=== PATIENT | female | born 1995 | race Caucasian/White ===

== ENCOUNTER 2017-08-14 12:52 | Emergency (ER) | payer BC, OTHER ==
[~2017-08-14 12:52] MED LIST: DIPH28.33 TP; PRED20TA PO; [UNRECOGNIZED DRUG - CODE] TP
[2017-08-14 13:00] VITALS: BP 122/81
[2017-08-14] MEDS ORDERED: PRED20TA PO (13:31)
--- NOTE | 2017-08-14 13:35 | PHYS DOC ---
General Chief Complaint: SKIN RASH/ABSCESS Stated Complaint: ABDOMINAL RASH Time Seen by MD: 13:11 Source: patient, old records Exam Limitations: no limitations Problems: History of Present Illness Initial Comments Patient is a 22-year-old female typically follows at [facility] who comes to the ED complaining of abdominal rash. Patient has extensive poison jose alberto and atopic dermatitis history in addition to Crohn's disease. States she does not follow with a batch blender her last colonoscopy was 3 years ago. She has family history of extensive environmental food and medication allergies. This morning she awoke with itchy red rash encompassing her abdomen and low back. She denies any new known exposures or contacts no new foods or medications. She's had these exacerbations in the past and states they always resolve with steroids and Benadryl. She denies any cough wheeze hoarseness of feeling of lump in throat throat or mouth swelling. Her emergency Department vital signs are stable. Timing/Duration: 4-6 hours Severity: mild Modifying Factors: improves with other Associated Symptoms: rash Allergies: Coded Allergies: amoxicillin (Verified Allergy, Intermediate, rash, 08/28/15) Past Medical History Medical History: other (Crohn's disease, atopic dermatitis) Surgical History: no surgical history Family History Significant Family History: no pertinent family hx Social History Smoker: non-smoker Alcohol: occasionally Drugs: none Review of Systems Constitutional: denies chills, denies fever EENTM: denies nose congestion, denies throat swelling, denies mouth swelling Respiratory: denies cough, denies shortness of breath, denies stridor, denies wheezing Cardiovascular: denies chest pain, denies palpitations, denies syncope Gastrointestinal: denies abdominal pain, denies nausea, denies vomiting Musculoskeletal: denies back pain, denies joint swelling, denies neck pain Skin: see HPI Psychiatric/Neurological: denies headache, denies numbness, denies paresthesia Hematologic/Lymphatic: denies blood clots, denies easy bleeding, denies easy bruising Immunological/Allergic: see HPI Physical Exam General Appearance: WD/WN, no apparent distress Eyes: bilateral eye normal inspection, bilateral eye PERRL, bilateral eye EOMI Ear, Nose, Throat: hearing grossly normal, normal ENT inspection (no mouth or throat swelling airway is patent), normal pharynx Neck: non-tender, supple Respiratory: normal breath sounds, no respiratory distress Gastrointestinal: non tender, soft Back: no CVA tenderness, no vertebral tenderness Extremities: non-tender, normal inspection Skin: warm/dry (urticarial rash and accompanying patient's abdomen and low back consistent with allergy/urticaria it is mildly warm there are no vesicles no scabbing) Orders, Labs, Meds I discussed treatment options including treatment and observation until symptoms resolve versus treatment prescriptions discharge and the patient follow -up if needed. She requests to be treated and discharged she agrees to be compliant with discharge instructions. Signs and symptoms to monitor and urgent indications to return to the department discussed, the patient's questions were answered to her satisfaction and she expressed agreement and understanding with the treatment plan. Solu-Medrol 125 mg IM ordered for here. Departure Time of Disposition: 13:33 Disposition: 01 HOME, SELF-CARE Diagnosis: urticarial rash Condition: GOOD Patient Instructions: Rash, [id number] Additional Instructions: Rest, no strenuous activity. [id number] Pepcid and Benadryl while taking prednisone. Work excuse through August 17, note given. Prescription: Prednisone Follow-up at [facility] this week for recheck and allergy/immunology or dermatology referrals. Return to ED with new or changing symptoms. ELIZABETH FISH DO Aug 14, 2017 13:35
[2017-08-14] MEDS ORDERED: methylPREDNISolone SOD SUCC PF 125 MG/2 ML VIAL. IM ONE (14:00)
== END 2017-08-14 13:51 | disposition home or self-care (01) ==
LOC: ER 12:52
DX: L50.9 Urticaria, unspecified (principal); K50.90 Crohn's disease, unspecified, without complications; Z88.1 Allergy status to other antibiotic agents
CPT/HCPCS: 99283

== ENCOUNTER 2018-10-23 19:08 | Emergency (ER) | payer OTHER ==
[~2018-10-23] VITALS: Ht 172.7 cm; Wt 67.5 kg
--- NOTE | 2018-10-23 19:13 | ED.ADGEN ---
Past History Past Medical History: UTI, Other Past Surgical History: No Surgical History, Other Smoking: Non-smoker Alcohol Use: None Drug Use: None Adult General Chief Complaint Chief Complaint ".. I am ... I have nausea.. all I had today was peanut butter... and [place] fries... " HPI HPI Patient is a 23 year old female who presents with nausea and hx of 15 wk gravid with lst . Pt. does have hx of Crohns which is treated with diet. Pt. follows at [facility] for primary. Pt. follows [facility] for . Pt. has had 2 Ultra Sounds and reportedly everything has been normal. Pt. Denies any travel or specific ill contracts. Pt. has been on supplement vitamins and iron. Pt. has hx of anemia. Pt . unable to keep hydrated today because of nausea. Review of Systems Review of Systems Constitutional: Denies fever or chills [] Eyes: Denies change in visual acuity, redness, or eye pain [] HENT: Denies nasal congestion or sore throat [] Respiratory: Denies cough or shortness of breath [] Cardiovascular: No additional information not addressed in HPI [] GI: Denies abdominal pain, , vomiting, bloody stools or diarrhea [] Complaints of nausea. : Denies dysuria or hematuria [] Musculoskeletal: Denies back pain or joint pain [] Integument: Denies rash or skin lesions [] Neurologic: Denies headache, focal weakness or sensory changes [] Endocrine: Denies polyuria or polydipsia [] All other systems were reviewed and found to be within normal limits, except as documented in this note. Family History Family History Non-contributory Current Medications Current Medications Current Medications Medications (Trade) Dose Ordered Sig/Clinton Start Time Stop Time Status Last Admin Dose Admin Famotidine (Pepcid Vial) 20 mg 1X ONCE 10/23/18 19:30 10/23/18 19:43 DC 10/23/18 19:55 20 MG Lactated Ringer's 1,000 ml @ 1,000 mls/hr Q1H 10/23/18 19:30 10/23/18 20:29 DC 10/23/18 19:54 1,000 MLS/HR Ondansetron HCl (Zofran) 8 mg 1X ONCE 10/23/18 19:30 10/23/18 19:43 DC 10/23/18 19:54 8 MG See Nursing for home meds Allergies Allergies Allergies Coded Allergies Type Severity Reaction Last Updated Verified amoxicillin Allergy Intermediate rash 08/28/15 Yes Physical Exam Physical Exam Constitutional: Well developed, well nourished,moderately acute distress, non- toxic appearance. [] HENT: Normocephalic, atraumatic, bilateral external ears normal, oropharynx dry , no oral exudates, nose normal. [] Eyes: PERRLA, EOMI, conjunctiva normal, no discharge. [] Neck: Normal range of motion, no tenderness, supple, no stridor. [] Cardiovascular:Heart rate regular rhythm, no murmur [] Lungs & Thorax: Bilateral breath sounds clear to auscultation [] Abdomen: Bowel sounds normal, soft, mild generalized tenderness, no masses, no pulsatile masses. [] FHR 150's. Skin: Warm, dry, no erythema, no rash. [] Back: No tenderness, no CVA tenderness. [] Extremities: No tenderness, no cyanosis, no clubbing, ROM intact, no edema. [] Neurologic: Alert and oriented X 3, normal motor function, normal sensory function, no focal deficits noted. []DTR+ 2 patella. Psychologic: Affect anxious, judgement normal, mood normal. [] Current Patient Data Vital Signs Vital Signs Date Time Temp Pulse Resp B/P (MAP) Pulse Ox O2 Delivery O2 Flow Rate FiO2 10/23/18 21:00 73 18 103/61 (75) 100 Room Air 10/23/18 19:08 98.2 Lab Results Laboratory Tests Test 10/23/18 19:22 10/23/18 19:40 Urine Collection Type Unknown Urine Color Yellow Urine Clarity Hazy Urine pH 7.0 Urine Specific [place] 1.015 Urine Protein Neg (NEG-TRACE) Urine Glucose (UA) Neg mg/dL (NEG) Urine Ketones (Stick) Neg mg/dL (NEG) Urine Blood Neg (NEG) Urine Nitrite Neg (NEG) Urine Bilirubin Neg (NEG) Urine Urobilinogen Dipstick 0.2 mg/dL (0.2 mg/dL) Urine Leukocyte Esterase Trace (NEG) Urine RBC 3-5 /HPF (0-2) Urine WBC 5-10 /HPF (0-4) Urine Squamous Epithelial Cells Many /LPF Urine Bacteria Few /HPF (0-FEW) Urine Mucus Marked /LPF Urine Opiates Screen Neg (NEG) Urine Methadone Screen Neg (NEG) Urine Barbiturates Neg (NEG) Urine Phencyclidine Screen Neg (NEG) Urine Amphetamine/Methamphetamine Neg (NEG) Urine Benzodiazepines Screen Neg (NEG) Urine Cocaine Screen Neg (NEG) Urine Cannabinoids Screen Neg (NEG) Urine Ethyl Alcohol Neg (NEG) White Blood Count 10.7 x10^3/uL (4.0-11.0) Red Blood Count 4.12 x10^6/uL (3.50-5.40) Hemoglobin 12.0 g/dL (12.0-15.5) Hematocrit 35.2 % (36.0-47.0) L Mean Corpuscular Volume 85 fL (79-100) Mean Corpuscular Hemoglobin 29 pg (25-35) Mean Corpuscular Hemoglobin Concent 34 g/dL (31-37) Red Cell Distribution Width 15.2 % (11.5-14.5) H Platelet Count 267 x10^3/uL (140-400) Neutrophils (%) (Auto) 73 % (31-73) Lymphocytes (%) (Auto) 20 % (24-48) L Monocytes (%) (Auto) 5 % (0-9) Eosinophils (%) (Auto) 1 % (0-3) Basophils (%) (Auto) 0 % (0-3) Neutrophils # (Auto) 7.7 x10^3uL (1.8-7.7) Lymphocytes # (Auto) 2.2 x10^3/uL (1.0-4.8) Monocytes # (Auto) 0.6 x10^3/uL (0.0-1.1) Eosinophils # (Auto) 0.2 x10^3/uL (0.0-0.7) Basophils # (Auto) 0.0 x10^3/uL (0.0-0.2) Maternal Serum HCG Beta Subunit 93995 mIU/mL (0-6) H Sodium Level 139 mmol/L (136-145) Potassium Level 3.4 mmol/L (3.5-5.1) L Chloride Level 103 mmol/L (98-107) Carbon Dioxide Level 26 mmol/L (21-32) Anion Gap 10 (6-14) Blood Urea Nitrogen 12 mg/dL (7-20) Creatinine 1.0 mg/dL (0.6-1.0) Estimated GFR (Cockcroft-Gault) 67.6 Glucose Level 113 mg/dL (70-99) H Calcium Level 9.1 mg/dL (8.5-10.1) Total Bilirubin 0.1 mg/dL (0.2-1.0) L Direct Bilirubin < 0.1 mg/dL (0.0-0.2) Aspartate Amino Transferase (AST) 15 U/L (15-37) Alanine Aminotransferase (ALT) 14 U/L (14-59) Alkaline Phosphatase 76 U/L (46-116) Total Protein 7.1 g/dL (6.4-8.2) Albumin 3.4 g/dL (3.4-5.0) Lipase 122 U/L (73-393) EKG EKG [] Radiology/Procedures Radiology/Procedures [] Course & Med Decision Making Course & Med Decision Making Pertinent Labs and Imaging studies reviewed. (See chart for details). Push fruit juices and clear fluids x 24 hrs. No solids or milk products. Allow bowel rest. Take Macrodantin 100 mg twice day for 3 days. Take katie candies and katie drinks my help with nausea. Intractable nausea and vomiting take Zofran 4 mg up 4 x day. Follow up urine cultures and labs with primary / OBGYN. Return if any concerns. [] Final Impression Final Impression 1. Nausea[] 2. Dehydrated 3. Gravid 15 weeks. 4. BHCG = 77,293 5. UTI 6. Blood Type O + Dragon Disclaimer Dragon Disclaimer This electronic medical record was generated, in whole or in part, using a voice recognition dictation system. MELANY SHORT MD Oct 23, 2018 19:13
[2018-10-23] MEDS ORDERED: IV RINGERS SOLUTION,LACTATED 1,000 ML IV SCH (19:30)
[2018-10-23] MEDS ORDERED: FAMOTIDINE 20 MG/2 ML VIAL IVP ONE (19:30)
[2018-10-23] MEDS ORDERED: ONDANSETRON PF 4 MG/2 ML VIAL. IV ONE (19:30)
[2018-10-23 19:42] LABS: BACTERIA,URINE FEW /HPF (0-FEW); BILIRUBIN,URINE NEG (NEG); CLARITY,URINE HAZY; COLOR,URINE YELLOW; GLUCOSE,URINE NEG (NEG); NITRITE,URINE NEG (NEG); SQUAMOUS EPITHELIAL CELL,UR MANY /LPF; UROBILINOGEN,URINE 0.2 mg/dL (0.2 mg/dL)
[2018-10-23 19:43] LABS: AMPHETAMINE/METHAMPHETAMINE NEG (NEG); BARBITURATES NEG (NEG); BENZODIAZEPINES NEG (NEG); CANNABINOIDS NEG (NEG); COCAINE NEG (NEG); METHADONE NEG (NEG); OPIATES NEG (NEG); PHENCYCLIDINE NEG (NEG)
[2018-10-23 20:05] LABS: BASO % 0 % (0-3); EOS # 0.2 x10^3/uL (0.0-0.7); EOS % 1 % (0-3); HEMATOCRIT 35.2 % (36.0-47.0); LYMPH # 2.2 x10^3/uL (1.0-4.8); LYMPH % 20 % (24-48); MEAN CORPUSCULAR HEMOGLOBIN 29 pg (25-35); MEAN CORPUSCULAR HGB CONC 34 g/dL (31-37); MEAN CORPUSCULAR VOLUME 85 fL (79-100); MONO # 0.6 x10^3/uL (0.0-1.1); MONO % 5 % (0-9); NEUT # 7.7 x10^3uL (1.8-7.7); NEUT % 73 % (31-73); PLATELET COUNT 267 x10^3/uL (140-400); RED BLOOD COUNT 4.12 x10^6/uL (3.50-5.40); RED CELL DISTRIBUTION WIDTH 15.2 % (11.5-14.5); WHITE BLOOD COUNT 10.7 x10^3/uL (4.0-11.0)
[2018-10-23 20:19] LABS: ALBUMIN 3.4 g/dL (3.4-5.0); ALK PHOS 76 U/L (46-116); ALT (SGPT) 14 U/L (14-59); ANION GAP 10 (6-14); AST (SGOT) 15 U/L (15-37); BLOOD UREA NITROGEN 12 mg/dL (7-20); CALCIUM 9.1 mg/dL (8.5-10.1); CARBON DIOXIDE 26 mmol/L (21-32); CHLORIDE 103 mmol/L (98-107); GFR 67.6; GLUCOSE 113 mg/dL (70-99); LIPASE 122 U/L (73-393); POTASSIUM 3.4 mmol/L (3.5-5.1); SODIUM 139 mmol/L (136-145); TOTAL BILIRUBIN 0.1 mg/dL (0.2-1.0); TOTAL PROTEIN 7.1 g/dL (6.4-8.2)
[2018-10-23 20:20] LABS: DIRECT BILIRUBIN < 0.1 mg/dL (0.0-0.2)
[2018-10-23] MEDS ORDERED: NITR100C63 PO (20:41)
[2018-10-23] MEDS ORDERED: ONDA4TAB7 PO (20:42)
[2018-10-23 21:00] VITALS: BP 103/61
== END 2018-10-23 21:00 | disposition home or self-care (01) ==
LOC: ER 19:08
DX: O26.892 Other specified pregnancy related conditions, second trimester (principal); E86.0 Dehydration; O23.42 Unspecified infection of urinary tract in pregnancy, second trimester; R11.0 Nausea; Z87.442 Personal history of urinary calculi; Z3A.15 15 weeks gestation of pregnancy; Z88.1 Allergy status to other antibiotic agents
CPT/HCPCS: 36415; 80048; 80076; 80307; 81001; 83690; 84702; 85025; 86900; 86901; 87086; 96361; 96374; 96375; 99283; J2405; J3490; J7120

== ENCOUNTER → 2020-11-27 | Outpatient (CLI) | payer BC ==
[~2020-11-27] MED LIST changes: +NITR100C63 PO; +ONDA4TAB7 PO
== END ==
LOC: LAB 10:51
PROVIDERS: ATTEND Student in an Organized Health Care Education/Training Program
DX: E55.9 Vitamin D deficiency, unspecified (principal)
CPT/HCPCS: 36415

== ENCOUNTER 2020-12-09 07:05 | Emergency (ER) | payer BC ==
[~2020-12-09] VITALS: Ht 172.7 cm; Wt 77.0 kg
[2020-12-09 07:11] VITALS: BP 156/88
[2020-12-09] MEDS ORDERED: OXYC1TAB15 PO (07:38)
--- NOTE | 2020-12-09 07:38 | PHYS DOC ---
Past History Past Medical History: Arthritis (Rheumatoid), UTI, Other Additional Past Medical Histor: Chrons, kidney stones Past Surgical History: Other Additional Past Surgical Histo: kidney stents Smoking: Non-smoker Alcohol Use: None Drug Use: None General Adult EDM: Chief Complaint: PAIN CONTROL HPI: HPI: 25-year-old female presents with report of exacerbation of her rheumatoid arthritis. Patient reports for the last day it has been in her left wrist and right shoulder. Patient reports her dictionary editor is aware and is trying to work her up to see if the Humira she is currently on needs to be changed. Patient reports she is currently on a prednisone taper. Patient reports she was diagnosed with rheumatoid arthritis approximately 1.5 years ago. Patient report s that she recently was on tramadol which has not been helping. Reports last night she did take a family members hydrocodone which also did not help. Patient also has been taking [id number] ibuprofen or Tylenol without relief. Patient presents today for pain control as she reports she was unable to sleep last night at all. Denies . Denies trauma. Review of Systems: Review of Systems: Constitutional: Denies fever or chills Eyes: Denies redness or eye pain HENT: Denies nasal congestion or sore throat Respiratory: Denies cough or shortness of breath Cardiovascular: Denies chest pain or palpitations GI: Denies abdominal pain, nausea, or vomiting : Denies dysuria or hematuria Musculoskeletal: Denies back pain; reports right shoulder and left wrist pain Integument: Denies rash or skin lesions Neurologic: Denies headache, focal weakness or sensory changes Complete systems were reviewed and found to be within normal limits, except as documented in this note. Allergies: Allergies: Allergies Coded Allergies Type Severity Reaction Last Updated Verified amoxicillin Allergy Intermediate rash 08/28/15 Yes Physical Exam: PE: Constitutional: Well developed, well nourished, no acute distress, non-toxic appearance HENT: Normocephalic, atraumatic Eyes: Conjunctiva normal, no discharge Neck: Normal range of motion, supple Lungs & Thorax: No respiratory distress, equal chest rise and fall Skin: Warm, dry, no erythema, no rash Extremities: Left wrist and right shoulder tenderness with reduced range of motion due to pain, no deformity, no significant edema ,bilateral radial pulses +2 Neurologic: Alert and oriented X 3, , no focal deficits noted Psychologic: Affect normal, judgment normal Current Patient Data: Vital Signs: Vital Signs Date Time Temp Pulse Resp B/P (MAP) Pulse Ox O2 Delivery O2 Flow Rate FiO2 12/09/20 07:11 97.6 82 16 156/88 (110) 99 Room Air EKG: EKG: [] Radiology/Procedures: Radiology/Procedures: [] Course & Med Decision Making: Course & Med Decision Making Patient presents with acute flare of rheumatoid arthritis which is in her left wrist and right shoulder. Joints without erythema or significant swelling. Patient reports symptoms are very similar to her prior flares. Patient currently on a prednisone taper. Patient also reports she is being worked up for possible adjustment of her Humira medication by her dictionary editor. Denies trauma. Pain addressed with one-time dose of long-acting oral steroid, IM ketorolac, and Percocet. Patient stable for discharge with outpatient follow-up with PCP/rheumatology. Discussed findings and plan with patient, who acknowledges understanding and agreement. Tobiason Disclaimer: Do Disclaimer: This electronic medical record was generated, in whole or in part, using a voice recognition dictation system. Departure Departure: Impression: Primary Impression: Flare of rheumatoid arthritis Disposition: 01 HOME SELF CARE/HOMELESS Condition: STABLE Referrals: JUANITA CLEMENTS MD (PCP) Patient Instructions: Rheumatoid Arthritis, [id number] Additional Instructions: Please follow closely with your dictionary editor for further management. Scripts Oxycodone Hcl/Acetaminophen (PERCOCET 5-325 MG TABLET ) 1 Each Tablet 0.5-1 TAB PO Q4-6HRS PRN for PAIN MDD 2 Tablet(s), #10 TAB 0 Refills Prov: JANE SORTO DO 12/09/20 JANE SORTO DO Dec 09, 2020 07:38
[2020-12-09] MEDS ORDERED: KETOROLAC 30 MG/ML VIAL. IM ONE (07:45)
[2020-12-09] MEDS ORDERED: DEXAMETHASONE 4 MG TABLET PO ONE (07:45)
[2020-12-09] MEDS ORDERED: oxyCODONE/APAP 5/325 1 TAB TABLET PO ONE (07:45)
== END 2020-12-09 08:08 | disposition home or self-care (01) ==
LOC: ER 07:05
DX: M06.811 Other specified rheumatoid arthritis, right shoulder (principal); M06.832 Other specified rheumatoid arthritis, left wrist; Z87.440 Personal history of urinary (tract) infections; Z87.442 Personal history of urinary calculi; Z88.1 Allergy status to other antibiotic agents
CPT/HCPCS: 96372; 99283; J1885; J8540